=== PATIENT | male | born 1960 | race Caucasian/White ===

== ENCOUNTER 2019-09-04 15:06 | Emergency (ER) | payer OTHER, SELFPAY ==
[2019-09-04 15:11] VITALS: TEMP 36.8
--- NOTE | 2019-09-04 15:14 | DI.RAD.S_ITS ---
PROCEDURE: XR KNEE RT 3V INDICATIONS: tripped, felt a pop TECHNIQUE: 3 views of the knee were acquired. COMPARISON: None. FINDINGS: Bones: No fractures or dislocations. No suspicious bony lesions. Small enthesophyte is evident at the crush the tendon insertion onto the patella. Mild spurring of the tibial spines is present. The joint spaces are relatively well-maintained. Soft tissues: No joint effusion. No suspicious soft tissue calcifications. IMPRESSION: No acute osseous abnormality of the right knee. No joint effusion. Dictated by: Nic Badillo M.D. on 09/04/2019 at 14:53 Approved by: Nic Badillo M.D. on 09/04/2019 at 14:56
--- NOTE | 2019-09-04 15:32 | DI.RAD.S_ITS ---
PROCEDURE: XR FEMUR RT MIN 2V INDICATIONS: pain TECHNIQUE: 2 views of the femur were acquired. COMPARISON: None. FINDINGS: Bones: No fractures or dislocations. No suspicious bony lesions. Soft tissues: No suspicious soft tissue calcifications or masses. IMPRESSION: No fracture. No osseous lesion. If symptoms and/or clinical suspicion for pathology persists, further assessment with repeat radiographs (7-10 days) or advanced imaging (e.g. CT, MRI or bone scan) may be helpful. Dictated by: Marilynn Payne MD, PhD on 09/04/2019 at 16:41 Approved by: Marilynn Payne MD, PhD on 09/04/2019 at 16:41
[2019-09-04 15:33] VITALS: BP 180/96; PULSE 65; RESP 20; O2SAT 100
[2019-09-04] MEDS: KETOROLAC 60 MG/2 ML VIAL IM (15:51)
[2019-09-04] MEDS: CYCLOBENZAPRINE 10 MG TABLET PO (16:59)
[2019-09-04 17:00] VITALS: BP 169/90; PULSE 72; RESP 16; O2SAT 99
--- NOTE | 2019-09-04 18:03 | ED_ITS ---
HPI - Extremity Injury (Lower) <THOMAS Torre - Last Filed: 09/04/19 19:50> General Chief Complaint: Extremity Injury, Lower Stated Complaint: FALL RIGHT THIGH INJURY Time Seen by Provider: 09/04/19 15:23 Source: patient and family Mode of arrival: Wheelchair Limitations: no limitations History of Present Illness HPI Narrative: The patient is a 59-year-old male nonsmoker with a chief complaint of a right thigh injury injury. He states he was going down the stairs, slipped forward and kicked out his right leg, and then pulled back quickly. He states he did not fall, but felt a sudden snap and his right quad area. Since then he is unable to ambulate on his right eye, unable to flex or extend his right knee. He states that his knee is okay.He does feels like he cannotcontrol from a follow-up knee pain. He denies any pain other than his right thigh. Related Data Home Medications Medication Instructions Recorded Confirmed Acidophilus 1 cap PO DAILY 09/04/19 09/04/19 Adrenal Assist 1 dose PO BID 09/04/19 09/04/19 CoQ-10 1 tab PO DAILY 09/04/19 09/04/19 Mushroom Complex 1 dose PO BID 09/04/19 09/04/19 alpha lipoic acid 300 mg PO BEDTIME 09/04/19 09/04/19 alpha lipoic acid 600 mg PO QAM 09/04/19 09/04/19 aspirin 81 mg PO QPM 09/04/19 09/04/19 fluticasone propionate 2 spray INTRANASAL DAILY 09/04/19 09/04/19 hydrochlorothiazide 25 mg PO DAILY 09/04/19 09/04/19 hydrocodone-acetaminophen 1 tab PO PRN PRN 09/04/19 09/04/19 multivitamin 1 tab PO DAILY 09/04/19 09/04/19 Previous Rx's Medication Instructions Recorded cyclobenzaprine 10 mg PO TID PRN #20 tab 09/04/19 ketorolac 10 mg PO TID PRN #14 tab 09/04/19 Allergies Allergy/AdvReac Type Severity Reaction Status Date / Time No Known Drug Allergies Allergy Verified 09/04/19 16:55 Review of Systems <THOMAS Torre - Last Filed: 09/04/19 19:50> Review of Systems Narrative: GENERAL: Denies chills, fatigue, malaise, fever, sweats. HEENT: Denies sinus pain, ear pain, sore throat, difficulty swallowing, dizziness. RESPIRATORY: Denies dyspnea, cough, wheezing, hemoptysis, sputum. CARDIOVASCULAR: Denies chest pain, palpitations, orthopnea, edema, GASTROINTESTINAL: Denies nausea, vomiting, abdominal pain, diarrhea, constipation, melena. : Denies dysuria, frequency, incontinence, hematuria, urinary retention. MUSCULOSKELETAL: See HPI SKIN: Denies rash, skin lesions, or other NEUROLOGIC: Denies weakness, headache, numbness, change in speech, confusion, seizures, incoordination. PSYCHIATRIC: No concerning psychosocial issues. 12 point review of systems is negative except for those stated above Exam <THOMAS Torre - Last Filed: 09/04/19 19:50> Narrative Exam Narrative: GENERAL: This is a well-nourished, well-developed patient, in appears uncomfortable HEAD: Atraumatic. Normocephalic. No temporal or scalp tenderness. EYES: Pupils equal round and reactive. Extraocular motions intact. No scleral icterus. No injection or drainage. ENT: Nose without bleeding, purulent drainage or septal hematoma. Throat without erythema, tonsillar hypertrophy or exudate. Uvula midline. Airway patent. NECK: Trachea midline. No JVD or lymphadenopathy. Supple, nontender, no meningeal signs. CARDIOVASCULAR: Regular rate and rhythm Resp: No cough. No increased respiratory effort. No accessory muscle use. GASTROINTESTINAL: Abdomen soft, non-tender, nondistended. No hepato- splenomegaly, or palpable masses. No guarding. EXTREMITIES: General pain to palpation superior to right knee. No pain to palpation below right knee. Patient is able to hold leg off stretcher when picked for a few seconds before dropping. Positive pedal pulses. Swelling noted superior to right knee. BACK: Nontender without deformity or crepitance. No flank tenderness. NEURO: AOx3. SKIN: No rash or erythema visible skin Initial Vital Signs Initial Vital Signs: Vital Signs Temperature 98.3 F 09/04/19 15:11 <Wendy Sanchez MD - Last Filed: 09/10/19 07:10> Initial Vital Signs Initial Vital Signs: Vital Signs Temperature 98.3 F 09/04/19 15:11 Procedures <THOMAS Torre - Last Filed: 09/04/19 19:50> Orthopedic Splinting/Casting Injury #1: Side: right Lower Extremity Injury Location: knee Lower Extremity Immobilizer: knee immobilizer Other Orthopedic Equipment: crutches Post splinting neuro exam: intact Post splinting vascular exam: intact Placed by: Nursing Course <THOMAS Torre - Last Filed: 09/04/19 19:50> Orders Ordered: Discontinued Medications Hydrocodone Bitart/Acetaminophen ([place] 5/325) 2 tab PO NOW ONE Stop: 09/04/19 18:12 Last Admin: 09/04/19 18:50 Dose: 2 tab Documented by: EMIL Cyclobenzaprine HCl (Flexeril) 10 mg PO NOW ONE Stop: 09/04/19 16:36 Last Admin: 09/04/19 16:59 Dose: 10 mg Documented by: EMIL Ketorolac Tromethamine (Toradol) 60 mg IM NOW ONE Stop: 09/04/19 15:33 Last Admin: 09/04/19 15:51 Dose: 60 mg Documented by: EMIL Vital Signs Vital signs: Vital Signs - 8 hr 09/04/19 15:11 09/04/19 15:33 09/04/19 17:00 Temperature 98.3 F Pulse Rate 65 72 Respiratory Rate 20 16 Blood Pressure [Left Arm] 180/96 H 169/90 H Pulse Oximetry 100 99 <Wendy Sanchez MD - Last Filed: 09/10/19 07:10> Orders Ordered: Discontinued Medications Hydrocodone Bitart/Acetaminophen ([place] 5/325) 2 tab PO NOW ONE Stop: 09/04/19 18:12 Last Admin: 09/04/19 18:50 Dose: 2 tab Documented by: EMIL Cyclobenzaprine HCl (Flexeril) 10 mg PO NOW ONE Stop: 09/04/19 16:36 Last Admin: 09/04/19 16:59 Dose: 10 mg Documented by: EMIL Ketorolac Tromethamine (Toradol) 60 mg IM NOW ONE Stop: 09/04/19 15:33 Last Admin: 09/04/19 15:51 Dose: 60 mg Documented by: EMIL Vital Signs Vital signs: Vital Signs - 8 hr 09/04/19 15:11 11/18/19 15:33 09/04/19 17:00 Temperature 98.3 F Pulse Rate 65 72 Respiratory Rate 20 16 Blood Pressure [Left Arm] 180/96 H 169/90 H Pulse Oximetry 100 99 MDM - Extremity Injury (Lower) <THOMAS Torre - Last Filed: 09/04/19 19:50> Imaging Data Knee x-ray: Radiologist's impression: Jama Levine 59 M [address] [id number] XRay Report Signed Patient: Jama Levine PMR#: [id number] : 1960cct:[id number] Age/Sex: 59 / MDate of Service: 09/04/19 Loc: ED Accession Number: [id number] Procedure: XR knee RT 3V Ordering Provider: Wendy Sanchez MD PROCEDURE: XR KNEE RT 3V INDICATIONS: tripped, felt a pop TECHNIQUE: 3 views of the knee were acquired. COMPARISON: None. FINDINGS: Bones: No fractures or dislocations. No suspicious bony lesions. Small enthesophyte is evident at the crush the tendon insertion onto the patella. Mild spurring of the tibial spines is present. The joint spaces are relatively well-maintained. Soft tissues: No joint effusion. No suspicious soft tissue calcifications. IMPRESSION: No acute osseous abnormality of the right knee. No joint effusion. Dictated by: Nic Badillo M.D. on 09/04/2019 at 14:53 Approved by: Nic Badillo M.D. on 09/04/2019 at 14:56 femur x-ray : Radiologist's impression: Jama Levine 59 M [address] [address] XRay Report Signed Patient: Jama Levine PMR#: [id number] : [id number]:[id number] Age/Sex: 59 / MDate of Service: 09/04/19 Loc: ED Accession Number: [id number] Procedure: XR femur RT min 2V Ordering Provider: Jenn Abdi PROCEDURE: XR FEMUR RT MIN 2V INDICATIONS: pain TECHNIQUE: 2 views of the femur were acquired. COMPARISON: None. FINDINGS: Bones: No fractures or dislocations. No suspicious bony lesions. Soft tissues: No suspicious soft tissue calcifications or masses. IMPRESSION: No fracture. No osseous lesion. If symptoms and/or clinical suspicion for pathology persists, further assessment with repeat radiographs (7-10 days) or advanced imaging (e.g. CT, MRI or bone scan) may be helpful. Dictated by: Marilynn Payne MD, PhD on 09/04/2019 at 16:41 Approved by: Marilynn Payne MD, PhD on 09/04/2019 at 16:41 [facility] Narrative Medical decision making narrative: The patient is a 51-year-old male who p resents with chief complaint of acute leg pain. Given his mechanism of injury and his exam, concerned about a quadriceps injury on his right side. He has negative x-rays. I spoke with Dr Richard regarding the patient, and discussed placing him in a knee immobilizer as well as crutches with follow up in office. I discussed this at length with the patient and his in accordance with plan of care. He received Toradol in the emergency department as well as Flexeril, which helped control the pain. I did give him some [place] prior to discharge. The patient has received 60 tablets of [place] earlier this month, so I do not feel the need to give him more at this point time. The patient is neurovascularly intact throughout stay in the emergency department. I discussed at length weight-bearing as tolerated as per orthopedics. Patient was given crutches as well. Patient have no questions or concerns upon discharge and state understanding of return precautions of any acute concerns comes circulation issues etc and plan of care. Discharge Plan Departure Patient Disposition: Home Clinical Impression: Leg injury Qualifiers: Encounter type: initial encounter Laterality: right Qualified Code(s): S89.91XA - Unspecified injury of right lower leg, initial encounter Discharge Date/Time: 09/04/19 19:38 Instructions: How to Use Crutches, How To Perform RICE (Rest, Ice, Compress, Elevate), DI for Leg Pain, How to Use a Knee Immobilizer Activity Restrictions/Additional Instructions: I sent to prescriptions to [facility] [place] I have given you a prescription of Toradol. This is an NSAID. Do not combine it with other NSAIDs such as Aleve or ibuprofen. I suggest taking it with some food, as it can irritate your stomach. As I discussed, your x-ray shows no acute fracture. This does not rule out a soft tissue injury such as a ligament or tendon injury. It is important that you follow up with primary care provider, especially if worsening or no improvement. There can be fractures that did not show up on initial x-ray. I am concerned that you might have injured your quadriceps. Please follow-up with [facility]. I spoke with Dr Richard regarding your case. Please contact our office in the morning to schedule follow-up. Prescriptions: New cyclobenzaprine 10 mg tablet 10 mg PO TID PRN (Reason: muscle spasm) Qty: 20 RF: 0 ketorolac 10 mg tablet 10 mg PO TID PRN (Reason: pain) Qty: 14 RF: 0 No Action hydrocodone-acetaminophen 5-325 mg tablet 1 tab PO PRN PRN (Reason: sinus headache pain) RF: 0 hydrochlorothiazide 25 mg tablet 25 mg PO DAILY RF: 0 fluticasone propionate 50 mcg/actuation spray,suspension 2 spray INTRANASAL DAILY RF: 0 Acidophilus 1 cap PO DAILY RF: 0 Adrenal Assist 1 dose PO BID RF: 0 multivitamin Tablet 1 tab PO DAILY RF: 0 aspirin 81 mg Tablet,Delayed Release (Dr/Ec) 81 mg PO QPM RF: 0 alpha lipoic acid 300 mg Capsule 600 mg PO QAM RF: 0 alpha lipoic acid 300 mg Capsule 300 mg PO BEDTIME RF: 0 CoQ-10 1 tab PO DAILY RF: 0 Mushroom Complex 1 dose PO BID RF: 0 Referrals: [facility] [Provider Group]
[2019-09-04] MEDS: HYDROCODONE/ACET 5/325 TABLET 2 TAB PO (18:50)
== END 2019-09-04 19:38 | disposition home or self-care (01) ==
PROVIDERS: Emergency Provider Nurse Practitioner Family
DX: S89.91XA Unspecified injury of right lower leg, initial encounter (principal); S79.921A Unspecified injury of right thigh, initial encounter; W18.49XA Other slipping, tripping and stumbling without falling, initial encounter
CPT/HCPCS: 29530; 73552; 73562; 96372; 99283; J1885